=== PATIENT | female | born 1955 | race Caucasian/White ===

== ENCOUNTER 2017-02-05 17:19 | Inpatient (IN) | payer OTHER ==
[~2017-02-05] VITALS: Ht 170.2 cm; Wt 121.9 kg
--- NOTE | ~2017-02-05 | HEMODYNAMI ---
PATIENT:LAYNE LEACH MEDICAL RECORD: [id number] : 59 LOCATION:[address] ADMISSION DATE: 02/05/17 Generatedon:02/06/201712:19 Patient name: LAYNE LEACH Patient #: [id number] SSN: : 1955 Date of study: 02/06/2017 Page: Of Hemodynamic Procedure Report Patient Data Patient Demographics Procedure consent was obtained First Name: LAYNE Gender: Female Last Name: HAYLEE : 1955 Patient #: [id number] Age: 61 year(s) Race: Unknown Additional ID: [id number] Contact details [address]: [address] [place] [address] State: [place] City: [place] Zip code: [address] Admission Admission Data Admission Date: 02/05/2017 Admission Time: 19:39 Room #: D.2123 Lab Results Lab Result Date: 02/06/2017 Lab Result Time: 0:00 Biochemistry Name Units Result Min Max BUN mg/dl 18 --(---*)-- 7 18 Creatinine mg/dl 0.5 -*(----)-- 0.6 1.3 CBC Name Units Result Min Max Hemoglobin g/dl 12.6 -*(----)-- 13.5 17.5 Procedure Procedure Types Cath Procedure Diagnostic Procedure [facility] w/Coronaries Procedure Description Procedure Date Procedure Date: 02/06/2017 Procedure Start Time: 12:03 Procedure End Time: 12:18 Procedure Staff Name Function Henri Chaudhary MD Performing Physician Jn England RT Monitor Tamera Wei RT Scrub Larry Dillon RN Nurse Procedure Data Cath Procedure Fluoroscopy Diagnostic fluoroscopy Total fluoroscopy Time: 2.2 time: 2.2 min min Diagnostic fluoroscopy Total fluoroscopy dose: dose: 259.98 mGy 259.98 mGy Contrast Material Contrast Material Type Amount (ml) Isovue 300 55 Entry Location Entry Primary Successful Side Size Upsize Upsize Entry Closure Serra ccessful Closure Location (Fr) 1 (Fr) 2 (Fr) Remarks Device Remarks Radial Right 6 Fr Mechanical artery Short Compression Estimated blood loss: 5 ml Diagnostic catheters Device Type Used For End Catheter Placement DIAGNOSTIC [place] 110cm 5 Procedure Fr catheter ([id number]) Procedure Medications Medication Administration Route Dosage Oxygen NC 2 l/min Heparin Flush Bag added to field 2 bags (1000units/500ml NS) 0.9% NaCl I.V. 100 ml/hr Radial Cocktail added to field 1 syringe (Verapomil 2mg/Nitro 400mcg/Heparin 1500units) Versed I.V. 1 mg Radial Cocktail I.A. 1 syringe (Verapomil 2mg/Nitro 400mcg/Heparin 1500units) Fentanyl I.V. 50 mcg Fentanyl I.V. 50 mcg Versed I.V. 1 mg Hemodynamics Rest HGB: 12.6 (g/dl) Heart Rate: 59 (bpm) Snapshots Pre Cath Intra NCS Post Cath Vital Signs Time Heart Resp SPO2 etCO2 NIBP (mmHg) Rhythm Pain Sedation Rate (ipm) (%) (mmHg) Status Level (bpm) 11:55:18 61 18 98 0 170/86(140) NSR 0 (11) 10(A) , No pain 12:00:07 60 17 100 43.1 164/82(116) NSR 0 (11) 10(A) , No pain 12:04:50 74 16 100 38.5 132/79(107) NSR 0 (11) 10(A) , No pain 12:09:20 75 18 98 41.5 142/79(110) NSR 0 (11) 9(A) , No pain 12:13:28 74 18 100 39.2 147/82(116) NSR 0 (11) 9(A) , No pain 12:18:05 62 10 100 42.3 168/83(109) NSR 0 (11) 9(A) , No pain Medications Time Medication Route Dose Verified Delivered Reason Notes Effectiveness by by 11:58:32 Oxygen NC 2 l/min Henri Juarez Per Neena Dillon RN physician 11:58:45 Heparin Flush added 2 bags Henri Juarez used for Bag to Neena Dillon carder blankets (1000units/500ml field NS) 11:58:53 0.9% NaCl I.V. 100 Henri Juarez Per ml/hr Neena Dillon RN physician 11:59:02 Radial Cocktail added 1 Henri Juarez used for (Verapomil to syringe Neena Dillon RN procedure 2mg/Nitro field 400mcg/Heparin 1500units) 12:03:26 Fentanyl I.V. 50 mcg Henri Juarez for sedation Neena Dillon RN 12:03:34 Versed I.V. 1 mg Henri Juarez for sedation Neena Dillon RN 12:03:43 Radial Cocktail I.A. 1 Henri Álvarez for (Verapomil syringe Neena Chaudhary MD vasodilation 2mg/Nitro 400mcg/Heparin 1500units) 12:06:23 Fentanyl I.V. 50 mcg Henri Juarez for sedation Neena Dillon RN 12:06:26 Versed I.V. 1 mg Henri Juarez for sedation Neena Dillon RN Procedure Log Time Note 11:22:22 Diagnostic Cath Status : Elective 11:35:33 Jn England RT(R) (CV) sent for patient. Start room use. 11:53:36 Vital chart was started 11:56:56 Time tracking: Regular hours 11:57:05 Plan of Care:Hemodynamics will remain stable., Cardiac rhythm will remain stable., Comfort level will be maintained., Respiratory function will remain adequate., Patient/ family verbilizes understanding of procedure., Procedure tolerated without complication., Recovers from procedure without complications.. 11:57:13 Patient received from PCU to CCL 3 Alert and oriented. Tansferred to table in Supine position. 11:57:17 Warm blankets applied, and shala hugger turned on for patient comfort. 11:57:18 Correct patient and procedure confirmed by team. 11:57:21 Signed procedure consent form obtained from patient. 11:57:23 ECG and BP/O2 sat monitors applied to patient. 11:57:31 Baseline sample Acquired. 11:57:35 Rhythm: sinus rhythm 11:57:40 Full Disclosure recording started 11:58:32 Oxygen 2 l/min NC was administered by Larry Dillon RN; Per physician; 11:58:45 Heparin Flush Bag (1000units/500ml NS) 2 bags added to field was administered by Larry Dillon RN; used for procedure; 11:58:53 0.9% NaCl 100 ml/hr I.V. was administered by Larry Dillon RN; Per physician; 11:58:58 H&P Date Dictated: 01/23/2017 Within 30 days and on chart., H&P Addendum completed by physician on day of procedure. (MUST COMPLETE FOR ALL OUTPATIENTS). 11:59:02 Radial Cocktail (Verapomil 2mg/Nitro 400mcg/Heparin 1500units) 1 syringe added to field was administered by Larry Dillon RN; used for procedure; 11:59:20 Pre-procedure instructions explained to patient. 11:59:21 Pre-op teaching completed and patient verbalized understanding. 11:59:22 Family in waiting room. 11:59:26 Patient NPO since Midnight. 11:59:32 Is the patient allergic to Iodine/contrast media? No. 11:59:49 Is patient on blood thinner?Yes 11:59:54 ACC The patient was administered the following blood thiners within the last 24 hours: ACCPlavix 11:59:57 Patient diabetic? No. 12:00:08 Patient not . Patient is over age 55. 12:00:09 ----Pre-sedation anethsthesia assessment.---- 12:00:11 Previous problem with sedation/anesthesia? No ? 12:00:15 Snore? Yes 12:00:16 Sleep apnea? No 12:00:18 Deviated septum? No 12:00:20 Opens mouth fully? Yes 12:00:21 Sticks out tongue? Yes 12:00:25 Airway obstruction? No ? 12:00:28 Dentures? No ? 12:00:31 Pre procedure: right dorsailis pedis pulse 1+ Palpable, but thready & weak; easily obliterated 12:00:37 Modified Yehuda's test Ulnar < 7 seconds 12:00:40 Patient pain scale 0/10 ?. 12:00:49 IV patent on arrival in left hand with 0.9% NaCl at [facility]. 12:01:26 Lab Result : BUN 18 mg/dl 12:: Lab Result : Creatinine 0.5 mg/dl 12::26 Lab Result : Hemoglobin 12.6 g/dl 12:01:31 Lab results completed and on chart. 12:01:36 Right Radial & Right Groin area was prepped with chlora-prep and draped in sterile fashion 12:01:38 Alarms reviewed by R. N. 12:01:39 Sharps counted by scrub and verified by R.N. 12::43 Physician arrived 12::44 --------ALL STOP TIME OUT------ 12::44 Final Timeout: patient, procedure, and site verified with staff and physician. All members of the team are in agreement. 12:01:47 Right Radial & Right Groin site verified by team. 12:01:51 Physical assessment completed. ASA score P 2 - A patient with mild systemic disease as per Henri Chaudhary MD. 12:01:56 Sedation plan: IV Moderate Sedation Medication:Versed, Fentanyl 12:02:37 Use device set Radial Dx 12:02:38 ACIST Syringe (16421) opened to sterile field. 12:02:39 Medline Cath Pack ([id number]) opened to sterile field. 12:02:40 Bag Decanter (2002S) opened to sterile field. 12:02:41 SHEATH 6FR Slender ([id number]) opened to sterile field. 12:02:41 DIAGNOSTIC WIRE .035 260cm J wire (488691) opened to sterile field. 12:02:42 ACIST Hand Control (41624) opened to sterile field. 12:02:43 ACIST Manifold (75754) opened to sterile field. 12:02:43 Tegaderm 4 x 4 (1626W) opened to sterile field. 12:02:50 Procedure started. 12:03:03 Local anesthetic to right radial artery with Lidocaine 2% by Henri Chaudhary MD.INITIAL ACCESS ONLY 12:03:16 A 6 Fr Short sheath was inserted into the Right Radial artery 12:03:26 Fentanyl 50 mcg I.V. was administered by Larry Dillon RN; for sedation; 12:03:34 Versed 1 mg I.V. was administered by Larry Dillon RN; for sedation; 12:03:43 Radial Cocktail (Verapomil 2mg/Nitro 400mcg/Heparin 1500units) 1 syringe I.A. was administered by Henri Chaudhary MD; for vasodilation; 12:03:53 Zero performed for pressure channel P1 12:03:58 Zero performed for pressure channel P1 12:04:00 Zero performed for pressure channel P1 12:04:03 Zero performed for pressure channel P1 12:04:06 Zero performed for pressure channel P1 12:04:08 Zero performed for pressure channel P1 12:04:12 Zero performed for pressure channel P1 12:05:24 A DIAGNOSTIC [place] 110cm 5 Fr catheter ([id number]) was advanced over the wire and used for Procedure. 12:06:21 Terumo ANGLE 260cm glide wire opened to sterile field. 12:06:23 Fentanyl 50 mcg I.V. was administered by Larry Dillon RN; for sedation; 12:06:26 Versed 1 mg I.V. was administered by Larry Dillon RN; for sedation; 12:06:55 J WIRE REMOVED 12:07: GLIDE WIRE ADVANCED 12:07:16 LV gram done using AUGUSTE 12:07:22 EF : 60 % 12:07:28 LCA angiography performed. 12:09:26 RCA angiography performed. 12:09:29 Catheter removed. 12:09:47 TR BAND Large ([id number]) opened to sterile field. 12:10:20 Sheath removed intact; hemostasis achieved with Mechanical Compression to the Right Radial artery. 12:10:25 Procedure ended.(Physican Out) 12:10:35 Fluoroscopy time 02.20 minutes. 12:10:42 Fluoroscopy dose: 259.98 mGy 12:10:42 Flurop Dose total: 259.98 12:10:49 Contrast amount:Isovue 300 55ml. 12:10:51 Sharps counted by scrub and verified by R.N. 12:17:09 TR band inflated with 14cc of air. 12:17:23 Insertion/operative site no bleeding no hematoma. 12:17:39 Post right radial artery:stable 12:17:50 Post Procedure Pulses reassessed and unchanged 12:17:55 Post-procedure physical assessment completed. ASA score P 2 - A patient with mild systemic disease as per Henri Chaudhary MD. 12:18:01 Post procedure rhythm: unchanged. 12:18:04 Estimated blood loss: 5 ml 12:18:06 Post procedure instruction explained to patient.Patient verbalizes understanding. 12:18:06 Patient needs reinforcement of post procedure teaching. 12:18:08 Procedure and supply charges have been captured, reviewed, submitted and are correct. 12:18:09 Vital chart was stopped 12:18:09 See physician's report for complete and final results. 12:18:12 Report given to PCU. 12:18:17 Patient transfered to PCU with Bed. 12:18:20 Procedure ended. 12:18:20 Full Disclosure recording stopped 12:18:24 End room use (Document Last) Device Usage Item Name Manufacture Quantity Catalog Hospital Part Current Minimal Lot# / Number Charge Number Stock Stock Serial# Code ACIST Acist 1 42067 089431 072038 586375 20 Syringe Medical (84798) Systems Inc Medline Cath Cardinal 1 [id number] 10950 705394 5 Pack Health ([id number]) Bag Decanter Microtek 1 2001S 184998 93297 883459 5 (2001S) Medical Inc. SHEATH 6FR Terumo 1 [id number] 015873 245602 229294 40 Slender ([id number]) DIAGNOSTIC [facility] 1 [id number] 551956 544328 318064 30 WIRE .035 260cm J wire (682216) ACIST Hand Acist 1 56960 886321 560703 379474 5 Control Medical (11755) Systems Inc ACIST Acist 1 58560 258708 340340 991840 5 Manifold Medical (29879) Systems Inc Tegaderm 4 x 3M 1 1626W 082799 384773 250199 5 4 (1626W) DIAGNOSTIC Terumo 1 40-5013 291483 909387 383856 5 [place] 110cm 5 Fr catheter (229643) Terumo ANGLE Terumo 1 PR1493 804938 258435 546273 5 260cm glide wire TR BAND Terumo 1 [id number] 495981 859420 474006 40 Large ([id number]) Signature Audit [place] Stage Time Signature Unsigned Intra-Procedure 02/06/2017 Jn England 12:18:58 PM RT(R) (CV) Signatures Monitor : Jn England RT Signature : Date : Time : [facility] [address] [place] [address]
--- NOTE | 2017-02-05 20:00 | NUR ---
ADMIT TO ROOM 2123 FROM ADMISSIONS. PT ALERT/ORIENTED. ACCOMPANIED BY SONS X 2. ADMISSION HISTORY AND ASSESSMENT COMPLETED. HOME MEDS REVIEWED.
--- NOTE | 2017-02-05 23:30 | NUR ---
DR JOHN ON UNIT AND ORDERS REVIEWED.
[2017-02-06 02:14] VITALS: BP 107/39
[2017-02-06 04:12] VITALS: BP 107/39; Ht 170.2 cm; Wt 121.9 kg
[2017-02-06] MEDS ORDERED: TOPROL XL50 MG PO (04:42)
[2017-02-06] MEDS ORDERED: ZESTORETIC 10/11 TAB PO (04:42)
[2017-02-06] MEDS ORDERED: ARTHROTEC EC 71 EACH PO (04:47)
[2017-02-06] MEDS ORDERED: ULTRAM50 MG PO (04:49)
[2017-02-06 05:55] VITALS: BP 161/70
[2017-02-06 06:40] LABS: BASOPHILS 0.4 % (0-2); EOSINOPHILS 8.2 % (0-7); HEMATOCRIT 39.5 % (36.0-48.0); HEMOGLOBIN 12.6 g/dL (12-16); IMMATURE GRANULOCYTES 0.9 % (0-5); LYMPHOCYTES 27.1 % (15-50); MCH 28.4 pg (26.0-34.0); MCHC 31.9 g/dL (31.0-37.0); MONOCYTES 8.8 % (2-11); NEUTROPHILS 54.6 % (40-80); PLATELET COUNT 173 10x3/uL (130-400); RBC 4.44 10x6/uL (4.00-5.40); RDW 13.5 % (11.5-14.5); WBC 5.6 10x3/uL (4.8-10.8)
[2017-02-06 06:54] LABS: INR 1.1 (0.85-1.17); PROTIME 13.8 SECONDS (11.6-15.0)
--- NOTE | 2017-02-06 07:00 | NUR ---
RECEIVED REPORT. ASSUMED CARE OF PATIENT. CALL LIGHT WITHIN REACH. PATIENT WITH NO IV ACCESS AT THIS TIME. DENIES NEEDS. NO DISTRESS.
[2017-02-06 07:11] LABS: CALC OSMOLALITY 281 mosm/kg (275-300); CALCIUM 8.5 mg/dL (8.5-10.1); CARBON DIOXIDE 25.7 mmol/L (21.0-32.0); CHLORIDE - SERUM 107 mmol/L (98-107); CREATININE - SERUM 0.5 mg/dL (0.6-1.3); GLUCOSE 115 mg/dL (74-106); POTASSIUM - SERUM 4.1 mmol/L (3.5-5.1); SODIUM 140 mmol/L (136-145); TROPONIN-I < 0.017 ng/mL (0.000-0.060); UREA NITROGEN 18 mg/dL (7-18); eGFR NON AFRICAN AMERICAN > 90 mL/min (90-120)
[2017-02-06 07:43] VITALS: BP 127/53
--- NOTE | 2017-02-06 08:15 | NUR ---
22 GAUGE IV PLACED TO LEFT WRIST X 1 STICK BY MAHAMED VASCULAR ACCESS NURSE. GOOD BLOOD RETURN, EASY FLUSH. NO DISTRESS.
--- NOTE | 2017-02-06 10:47 | NUR ---
PREOP MEDICATIONS ADMINISTERED AT THIS TIME PER MATERIAL CONTROL ANALYST. NO DISTRESS.
--- NOTE | 2017-02-06 12:14 | NUR ---
PATIENT REMAINS OFF UNIT TO CUT OFF [place]WYER AT THIS TIME. NO DISTRESS.
--- NOTE | 2017-02-06 12:38 | NUR ---
RECEIVED PATIENT BACK FROM E MARKETING SPECIALIST VIA BED. ALERT/ORIENTED. TR BAND TO RIGHT WRIST. NO BLEEDING FROM SITE. FAMILY AT BEDSIDE. PERIPHERAL PULSES PATENT. NO DISTRESS. TELEMETRY APPLIED.
--- NOTE | 2017-02-06 14:03 | NUR ---
7ML AIR RELEASED FROM TR BAND, NO BLEEDING FROM SITE.
--- NOTE | 2017-02-06 14:54 | NUR ---
1445 TR BAND REMOVED FROM RIGHT WRIST. NO BLEEDING FROM SITE. 2X2 GAUZE APPLIED AND SECURED WITH TEGADERM CLEAR DRESSING TO CREATE A PRESSURE DRESSING. 1450 22 GAUGE IV REMOVED FROM LEFT WRIST. PRESSURE HELD TO SITE. CATHETER TIP INTACT. NO BLEEDING FROM SITE. 2X2 GAUZE APPLIED AND SECURED WITH TAPE. TOLERATED IV REMOVAL WELL. NO DISTRESS.
--- NOTE | 2017-02-06 15:09 | NUR ---
DISCHARGE INSTRUCTIONS PROVIDED TO PATIENT. PATIENT VERBALIZED UNDERSTANDING OF ALL INSTRUCTIONS PROVIDED.
--- NOTE | 2017-02-06 15:51 | NUR ---
PATIENT LEFT UNIT VIA WHEELCHAIR IN NO ACUTE DISTRESS. PATIENT DISCHARGED TO HOME WITH FAMILY. NO DISTRESS.
--- NOTE | 2017-02-06 18:20 | NUR ---
Patient Name: LAYNE LEACH Admission Status: Elective Accout number: [id number] Admission Date: 02-05-2017 : 1955 Admission Diagnosis: Attending: EDMUND JOHN Current LOS: 1 Anticipated DC Date: 02-06-2017 Planned Disposition: Home Primary Insurance: [employer] BENEFITS Discharge Planning Comments: * Is the patient Alert and Oriented? Yes 0 * How many steps to enter\exit or inside your home? NONE 0 * PCP DR CHAMBERLAIN 0 * Pharmacy [facility] [address], CHANGING TO [facility] [address] * Preadmission Environment Home Alone 0 * ADLs Independent 0 * Equipment Cane 0 * Other Equipment NO MEDICAL EQUIPMENT PROVIDER PREFERENCE 0 * List name and contact numbers for known caregivers / representatives who currently or will assist patient after discharge: TOMMIE CHRISTIAN, ZOFIA, (MESSAGE) ZOFIA MEDINA, 0 * Community resources currently utilized None 0 * Please name any agencies selected above. NONE 0 * Additional services required to return to the preadmission environment? No 0 * Can the patient safely return to the preadmission environment? Yes 0 * Has this patient been hospitalized within the prior 30 days at any hospital? No 0 CM MET WITH PT IN ROOM TO DISCUSS DISCHARGE PLANNING AND NEEDS. PT REPORTS LIVING AT HOME INDEPENDENTLY AND ALONE. PT HAS A CANE WITH NO MEDICAL EQUIPMENT PROVIDER PREFERENCE AND NO OUTSIDE SERVICES ASSISTING IN THE HOME. CM DISCUSSED AVAILABILITY OF HOME HEALTH, REHAB SERVICES AND MEDICAL EQUIPMENT. PT DENIES DISCHARGE NEEDS, REPORTS FAMILY IS HERE TO PICK HER UP FOR DISCHARGE HOME TODAY. Senior Trial Attorney: Hawk Bautista
--- NOTE | 2017-02-13 12:15 | DS ---
PATIENT:LAYEN HERNANDEZ :[birth year] MEDICAL RECORD: [id number] DISCHARGE SUMMARY ADMISSION DATE: 02/05/17 DISCHARGE DATE: 02/06/17 DIAGNOSES: 1. Chest pain. 2. Normal cardiac catheterization. 3. Hypertension. HOSPITAL COURSE: Ms. Hernandez presents with chest pain compatible with angina; however, cardiac catheterization is normal. Chest pain is noncardiac in etiology. No further cardiac workup needs to be ascertained. TRANSINT:[id number] Voice Confirmation ID: [id number] DOCUMENT ID: [id number] ANTONELLA JOHN MD at 1215 CC: [id number] DICTATION DATE: 02/06/17 1211 IT SERVICE DELIVERY MANAGER: 02/06/17 1853 DIS IN 02/06/17 [id number] [place] [address]
== END 2017-02-06 15:52 | disposition home or self-care (01) | DRG 287 ==
LOC: D.MS 17:19 → D.M2 19:39
PROVIDERS: ADMIT Internal Medicine Interventional Cardiology
PROC: B2151ZZ Fluoroscopy of Left Heart using Low Osmolar Contrast (ICD-10-PCS; 2017-02-06)
PROC: 4A023N7 Measurement of Cardiac Sampling and Pressure, Left Heart, Percutaneous Approach (ICD-10-PCS; 2017-02-06)
PROC: B2111ZZ Fluoroscopy of Multiple Coronary Arteries using Low Osmolar Contrast (ICD-10-PCS; principal; 2017-02-06 08:30)
DX: R07.89 Other chest pain (principal); I10 Essential (primary) hypertension